=== PATIENT | female | born 1975 | race Caucasian/White ===

== ENCOUNTER 2024-04-05 17:24 | Inpatient (IN) | payer OTHER ==
[~2024-04-05] VITALS: Ht 162.6 cm; Wt 92.3 kg
[2024-04-05 18:25] LABS: BASOPHILS ABSOLUTE AUTO 0.04 K/mm3 (0.00-0.23); BASOPHILS PERCENT AUTO 1 % (0-2); EOSINOPHILS PERCENT AUTO 5 % (0-6); Hematocrit 38.1 % (33.0-51.0); Hemoglobin 13.1 g/dL (11.5-16.0); IMMATURE GRAN ABSOLUTE AUTO 0.02 K/mm3 (0.00-0.10); IMMATURE GRAN PERCENT AUTO 0 % (0-1); LYMPHOCYTES ABSOLUTE AUTO 1.71 K/mm3 (0.84-5.20); LYMPHOCYTES PERCENT AUTO 26 % (21-46); MONOCYTES ABSOLUTE AUTO 0.47 K/mm3 (0.16-1.47); MONOCYTES PERCENT AUTO 7 % (4-13); Mean Corpuscular HGB 29.9 pg (26.0-34.0); Mean Corpuscular HGB Conc 34.4 g/dL (31.5-36.5); Mean Corpuscular Volume 87 fL (80-100); Mean Platelet Volume 11.6 fL (9.1-12.4); NEUTROPHILS PERCENT AUTO 62 % (41-73); Platelet Count 253 K/mm3 (150-400); RDW Coefficient Variation 13.8 % (11.7-14.2); Red Blood Cell Count 4.38 M/mm3 (3.80-5.20); White Blood Cell Count 6.64 K/mm3 (4.00-11.30)
[2024-04-05 18:49] LABS: Bun/Creatinine Ratio 23.2 (12.0-20.0); Calcium, Blood 9.2 mg/dL (8.5-10.1); Creatinine, Blood 2.2 mg/dL (0.40-1.00); Magnesium, Blood 2.4 mg/dL (1.6-2.4); Potassium, Blood 3.4 mmol/L (3.5-5.5)
[2024-04-05] MEDS ORDERED: Labetalol HCL 5 MG/ML 4ML Injection (Single Dose) IV ONE (20:30)
[2024-04-05] MEDS ORDERED: HydrALAZINE HCl 25 MG Tab PO PRN (21:05)
[2024-04-05] MEDS ORDERED: Magnesium Sulf 2 GM/Water 50ML 50 ML IV ONE (21:15)
[2024-04-05 21:56] LABS: Thyroid Stimulating Hormone 1.68 uIU/mL (0.360-4.800)
[2024-04-05 21:57] LABS: Phosphorus, Blood 3.8 mg/dL (2.5-4.9)
[2024-04-05] MEDS ORDERED: AmLODIPine Besylate 5 MG Tab PO SCH (22:00)
[2024-04-05] MEDS ORDERED: Potassium Chloride 20 MEQ TabCR PO ONE (22:00)
[2024-04-05] MEDS ORDERED: HydroCHLOROthiazide 25 mg Tab PO SCH (22:00)
[2024-04-05 23:52] LABS: Source, Urine Clean Catch
[2024-04-05 23:58] LABS: Bilirubin, Urine Neg (Neg); Blood, Urine 1+ (Neg); Glucose Qualitative, Urine Neg (Neg); Ketones, Urine Neg (Neg); Leukocyte Esterase, Urine Neg (Neg); Nitrite, Urine Neg (Neg); Protein, Urine 3+ (Neg); Urobilinogen, Urine NORM (Normal)
[2024-04-06] VITALS (9 sets, daily range): BP systolic 157–186; BP diastolic 77–95
[2024-04-06 00:20] LABS: Appearance, Urine Clear (Clear); Color, Urine Pale Yellow (P-Yellow)
[2024-04-06 00:21] LABS: Bacteria Few /hpf; Red Blood Cells, Urine 0-2 /hpf (0-2); Squamous Epithelial Cells Mod /hpf (Few); White Blood Cells, Urine 0-2 /hpf (0-5)
[2024-04-06] MEDS ORDERED: HydrALAZINE HCl 20 MG / ML 1ML Vial IV PRN (02:15)
--- NOTE | 2024-04-06 02:22 | NUR ---
PT HERE VIA WC FROM ER. PT AMBULATORY TO MEDICAL FLOOR BED. PT DENIES ANY COMPLAINTS OF A HEADACHE, CHEST PAIN, NAUSEA, NUMBNESS/TINGLING OR SOB. PT IS NPO FOR LAB THIS AM. ORIENTED TO ROOM/CALL LIGHT/BATHROOM. PT DENIES ANY REQUESTS. BED IN LOW POSITION. PT IS INDEPENDENT TO THE BRP.
--- NOTE | 2024-04-06 02:45 | NUR ---
TELE NSR 78, PER [place], PCU CONTACT CENTER MANAGER. PT DOES HAVE AN IRREGULAR HEART RHYTHM WITH AUSCULTATION.
--- NOTE | 2024-04-06 06:07 | NUR ---
SHIFT SUMMARY - NO ACUTE CHANGES SINCE ADMIT THIS AM. PT IS CURRENTLY SLEEPING, RESPIRATIONS EVEN AND UNLABORED. CALL LIGHT WITHIN REACH. BED IN LOW POSITION. PT IS INDEPENDENT WITH AMBULATION. WILL REPORT OFF TO ONCOMING SHIFT.
[2024-04-06 06:41] LABS: Anion Gap 11 mmol/L (3-11); Blood Urea Nitrogen 44 mg/dL (8-24); Bun/Creatinine Ratio 25.3 (12.0-20.0); CHOL/HDL RATIO 3.9; CO2, Blood 26 mmol/L (21-32); Calcium, Blood 9.6 mg/dL (8.5-10.1); Chloride, Blood 104 mmol/L (98-108); Cholesterol 249 mg/dL (50-200); Creatinine, Blood 1.74 mg/dL (0.40-1.00); Glomerular Filtration Rate 35 (60-); Glucose, Blood 102 mg/dL (70-99); HDL Cholesterol 64 mg/dL (>39); LDL/HDL RATIO 2.5; Low Density Lipoprotein Chol 159 mg/dL (0-110); Potassium, Blood 3.2 mmol/L (3.5-5.5); Sodium, Blood 138 mmol/L (136-145); Triglycerides 130 mg/dL (30-160); Very Low Density Lipoprot Chol 26 mg/dL (6-32)
[2024-04-06] MEDS ORDERED: Potassium Chloride 20 MEQ TabCR PO ONE ×2 (08:55→21:00)
[2024-04-06] MEDS ORDERED: Heparin Sodium 5000 Units/ML 1ML MDV SC SCH (09:00)
--- NOTE | 2024-04-06 17:33 | NUR ---
SHIFT SUMMARY: PATIENT IS A&OX4/INDEPENDENT; PLEASANT AND COOPERATIVE WITH CARE. SHE JUST RECENTLY HAD HER ECHO DONE; PENDING RESULTS, BLOOD PRESSURES CONTINUE TO BE ELEVATED GIVING PRN HYDRALAZINE. PATIENT CONTINUES TO BE ASYMTOMATIC; NO EVENTS ON TELE. SHE IS IN HER BED, ON THE PHONE, CALL LIGHT WITHIN REACH NO SIGNS OR SYMPTOMS OF DISTRESS, PLAN OF CARE ON GOING; POSSIBLE D/C 04/07/24.
[2024-04-06] MEDS ORDERED: Losartan Potassium 50 MG Tab PO SCH (21:00)
[2024-04-07 00:08] VITALS: BP 188/94
[2024-04-07 00:39] VITALS: BP 150/81
[2024-04-07 04:20] VITALS: BP 175/96
--- NOTE | 2024-04-07 05:16 | NUR ---
SHIFT SUMMARY: PT AOX4 IND IN ROOM, CALLS APPROPRIATELY. PT IS VERY PLEASANT AND COOPERATIVE IN CARE. PT HAD SOME HIGH BLOOD PRESSURES, MEDICATED PER EMR. TOLERATING MEDICATIONS WELL. PT ASSYMPTOMATIC, DENIES CHEST PAIN, OR SOB. PT SLEPT WELL. NO ACUTE EVENTS OVERNIGHT. PT SLEEPING IN BED, BED IN LOWEST POSITION, CALL LIGHT IN REACH. CONTINUING CARE.
[2024-04-07 06:14] LABS: BASOPHILS ABSOLUTE AUTO 0.05 K/mm3 (0.00-0.23); BASOPHILS PERCENT AUTO 1 % (0-2); EOSINOPHILS ABSOLUTE AUTO 0.39 K/mm3 (0.00-0.68); EOSINOPHILS PERCENT AUTO 7 % (0-6); Hematocrit 35.7 % (33.0-51.0); Hemoglobin 11.9 g/dL (11.5-16.0); IMMATURE GRAN ABSOLUTE AUTO 0.02 K/mm3 (0.00-0.10); IMMATURE GRAN PERCENT AUTO 0 % (0-1); LYMPHOCYTES ABSOLUTE AUTO 1.63 K/mm3 (0.84-5.20); LYMPHOCYTES PERCENT AUTO 29 % (21-46); MONOCYTES ABSOLUTE AUTO 0.43 K/mm3 (0.16-1.47); MONOCYTES PERCENT AUTO 8 % (4-13); Mean Corpuscular HGB Conc 33.3 g/dL (31.5-36.5); Mean Corpuscular Volume 87 fL (80-100); Mean Platelet Volume 12.1 fL (9.1-12.4); NEUTROPHILS ABSOLUTE AUTO 3.04 K/mm3 (1.96-9.15); NEUTROPHILS PERCENT AUTO 55 % (41-73); Platelet Count 248 K/mm3 (150-400); RDW Coefficient Variation 14.1 % (11.7-14.2); RDW Standard Deviation 44.9 fL (35.1-46.3); White Blood Cell Count 5.56 K/mm3 (4.00-11.30)
[2024-04-07 06:29] LABS: Bun/Creatinine Ratio 23.5 (12.0-20.0); Calcium, Blood 9.6 mg/dL (8.5-10.1); Creatinine, Blood 1.96 mg/dL (0.40-1.00); Potassium, Blood 4.2 mmol/L (3.5-5.5)
[2024-04-07 07:29] VITALS: BP 162/86
[2024-04-07 12:04] VITALS: BP 168/84
[2024-04-07] MEDS ORDERED: NORVASC10 MG PO (13:18)
[2024-04-07] MEDS ORDERED: HYDCHL25 PO (13:19)
[2024-04-07] MEDS ORDERED: LOSA50 PO (13:19)
[2024-04-07] MEDS ORDERED: AMLO10 PO (15:18)
--- NOTE | 2024-04-07 16:38 | NUR ---
PT DISCHARGED HOME, PT DRIVING SELF HOME. DENIES CHEST PAIN, PRESSURE. DENIES SOB, DISCUSSED DISCHARGE INSTRUCTIONS WITH PT. EMPHASIZED IMPORTANCE OF MONITORING BP AT HOME AND KEEPING RECORDS, TAKING MEDICATIONS PRESCRIBED AND FOLLOWING UP WITH PCP WITHIN 7 DAYS. PT VERBALIZED UNDERSTANDING.
== END 2024-04-07 16:02 | disposition home or self-care (01) | DRG 304 ==
LOC: ER 17:24 → ERHOLD 17:25 → MEDS 17:25
PROVIDERS: Emergency Medicine; Internal Medicine; Nurse Practitioner Acute Care; ADMIT Internal Medicine
DX: I16.1 Hypertensive emergency (principal); I50.23 Acute on chronic systolic (congestive) heart failure; N17.9 Acute kidney failure, unspecified; I13.0 Hypertensive heart and chronic kidney disease with heart failure and stage 1 through stage 4 chronic kidney disease, or unspecified chronic kidney disease; I1A.0 Resistant hypertension; I05.2 Rheumatic mitral stenosis with insufficiency; E66.01 Morbid (severe) obesity due to excess calories; E78.5 Hyperlipidemia, unspecified; N18.9 Chronic kidney disease, unspecified; I16.0 Hypertensive urgency; R79.89 Other specified abnormal findings of blood chemistry; E87.6 Hypokalemia; Z68.35 Body mass index [BMI] 35.0-35.9, adult
CPT/HCPCS: 36415; 71046; 76770; 80048; 80061; 81001; 82043; 82533; 83036; 83735; 83880; 84100; 84443; 84484; 85025; 93005; 93010; 93306; 93975; 96372; 96374; 96376; 99285-25; A9270; G0378; J0360; J1644; J3475

== ENCOUNTER → 2024-10-17 | Outpatient (CLI) | payer OTHER ==
[~2024-10-17] MED LIST: AMLO10 PO; HYDCHL25 PO; LOSA50 PO; NORVASC10 MG PO
== END ==
LOC: LAB SHORT 09:15 → LAB 09:15
PROVIDERS: Physician Assistant
DX: Z01.419 Encounter for gynecological examination (general) (routine) without abnormal findings (principal)
CPT/HCPCS: 87624; G0145